=== PATIENT | male | born 1975 | race Caucasian/White ===

== ENCOUNTER 2018-05-15 09:36 | Emergency (ER) | payer MEDICAID ==
--- NOTE | 2018-05-15 10:17 | EDPHY ---
H & P Stated Complaint: L thigh pain Time Seen by Provider: 05/15/18 10:02 HPI/ROS: CHIEF COMPLAINT: Left inguinal pain HISTORY OF PRESENT ILLNESS: 42-year-old homeless male arrives via ambulance complaining of left inguinal pain. He does not think he sustained any trauma but does note that he may have fallen off a skateboard some time. He states that he is unable to bear weight but EMS and nursing staff reports that he was observed weight-bearing. He denies discoloration. Denies testicular or complaints. Denies abdominal pain. Denies nausea or vomiting. Passing gas and bowel movements as normal. PRIMARY CARE PROVIDER: REVIEW OF SYSTEMS: A ten point review of systems was performed and is negative with the exception of the items mentioned in the HPI PAST MEDICAL/SURGICAL HISTORY: no anticoagulant use, no relevant medical/ surgical history SOCIAL HISTORY: Homeless. Positive for daily tobacco use. PHYSICAL EXAM 1) GENERAL: Well-developed, well-nourished, alert and oriented. Sleeping, easily woken, requesting food Appears to be in no acute distress. Answering questions appropriately. 2) HEAD: Normocephalic, atraumatic 3) HEENT: Pupils equal, round, reactive to light bilaterally.. 4) NECK: No cervical collar is on. Posterior cervical spine is nontender, no stepoff, no effusion. Full range of motion which does not elicit any midline cervical spine pain, no posterior midline tenderness, no step-off. 5) LUNGS: Clear to auscultation bilaterally, no wheezes 6) HEART: [Regular rate and rhythm, 7) ABDOMEN: Flat, no visible abnormality. No inguinal mass, bilateral inguinal examination reveals no mass no hernia. He is tender to palpation left inguinal region with brisk and equal femoral pulses no bruit. No guarding, no rebound, no focal tenderness, no peritoneal signs, no signs of trauma, no ecchymosis 8) MUSCULOSKELETAL: Bilateral lower extremities have full range of motion. No pain with axial loading of the joint. Skin is intact with no signs of infection such as cellulitis. No crepitus. No erythema. No signs of trauma. Moving all extremities, no focal areas of tenderness, no obvious trauma. 9) BACK: No midline vertebral tenderness, no fluctuance, no step-off, no obvious trauma, no visual or palpable abnormality. 10) SKIN: No laceration. No abrasion 11) : Normal male external genitalia bilateral testicles nontender, scrotum is unremarkable with no signs of cellulitis or infection or Jhonatan's gangrene. No tenderness. DIFFERENTIAL DIAGNOSIS: In no particular order including but limited to fracture, sprain, strain, adenopathy, vascular pathology, thrombus, necrotizing fasciitis, necrotizing myositis , malignancy - Medical/Surgical History Hx Asthma: No Hx Chronic Respiratory Disease: No Hx Diabetes: No Hx Cardiac Disease: No Hx Renal Disease: No Hx Cirrhosis: No Hx Alcoholism: No Hx HIV/AIDS: No Hx Splenectomy or Spleen Trauma: No Other PMH: Anxiety, PTSD, ADHD - Social History Smoking Status: Never smoked Constitutional: Initial Vital Signs Temperature (C) 37.4 C 05/15/18 09:44 Heart Rate 87 05/15/18 09:44 Respiratory Rate 18 05/15/18 09:44 Blood Pressure 113/77 05/15/18 09:44 O2 Sat (%) 97 05/15/18 09:44 O2 Delivery Mode Room Air Allergies/Adverse Reactions: No Known Allergies Allergy (Unverified 05/15/18 09:46) Medical Decision Making - Diagnostics Imaging Results: Imaging Impressions Pelvis X-Ray 05/15/18 10:13 Impression:1. Cannot exclude a distal ureteral stone. 2. Possible sacroiliitis. Pelvis CT 05/15/18 10:50 Impression: 1. Shotty lymph nodes in the left inguinal area. 2. Remote sacroiliitis. 3. No distal ureteral lithiasis. Results called and discussed with Monica Lopez at 05/15/2018 11:31 Images reviewed myself ED Course/Re-evaluation: 10:17 a.m.: Patient refuses to ambulate for me however it was noted by the nursing staff and by EMS that he was able to ambulate without assistance. 10:50 a.m.: Re-evaluation, sleeping easily woken. Requesting food. X-ray shows no definitive fracture. He is complaining of continued pain in in the left inguinal region with no definitive mass or overlying skin changes. 11:30 a.m.: Re-evaluation, sleeping, easily woken, requesting food. Discussed his imaging results showing inguinal adenopathy. He has no evidence of scrotal or lower extremity infectious etiology. No other adenopathy appreciated on examination. No further intervention indicated from the emergency department. Malignancy not ruled out. Stressed follow up. Usual and customary discharge precautions and instructions provided. He feels comfortable being discharged. At discharge I observed the patient walking out of the emergency department wearing a backpack with a stable steady gait. He has no complaints of pain or discomfort. - Data Points Laboratory Results: 05/15/18 05/15/18 10:47 10:40 POC Hgb 15.0 gm/dL gm/dL (13.7-17.5) POC Hct 44 % % (40-51) POC Sodium 142 mEq/L mEq/L (135-145) POC Potassium 3.5 mEq/L mEq/L (3.3-5.0) POC Chloride 103 mEq/L mEq/L (97-110) POC BUN 6 mg/dL L mg/dL (7-23) POC Creatinine 0.7 mg/dL mg/dL (0.7-1.3) POC Glucose 84 mg/dL mg/dL (70-100) POC Troponin I 0.00 ng/mL ng/mL (0.00-0.08) Point of Care Test Results: Chemistry 05/15/18 05/15/18 10:47 10:40 POC Sodium 142 mEq/L mEq/L (135-145) POC Potassium 3.5 mEq/L mEq/L (3.3-5.0) POC Chloride 103 mEq/L mEq/L (97-110) POC BUN 6 mg/dL L mg/dL (7-23) POC Creatinine 0.7 mg/dL mg/dL (0.7-1.3) POC Glucose 84 mg/dL mg/dL (70-100) POC Troponin I 0.00 ng/mL ng/mL (0.00-0.08) ISTAT H&H 05/15/18 10:47 POC Hgb 15.0 gm/dL gm/dL (13.7-17.5) POC Hct 44 % % (40-51) Departure - Departure Disposition: Home, Routine, Self-Care Clinical Impression: Lymphadenopathy Condition: Good Instructions: Lymphadenopathy (ED) Additional Instructions: Return to the ER if you develop new or worsening symptoms or any other pain that concerns you. Referrals: [facility],. [Clinic] - 2-3 days, call for appt.
[2018-05-15] MEDS ORDERED: IOPAMIDOL (ISOVUE-300) 100 ML BTL ONE (10:52)
[2018-05-15 12:06] VITALS: BP 129/80
--- NOTE | 2018-05-15 15:27 | ASDISCHSUM ---
Discharge Information Plan Status:Homeless/Long Term Medically Cleared to Leave: Discharge Date:05/15/2018 12:06 PM D/C Disposition:Streets (Homeless) ADT D/C Disposition:Home, Routine, Self-Care Projected Discharge Date:05/15/2018 12:06 PM Transportation at D/C:None or Unknown Discharge Delay Reason: Follow-Up Date:05/15/2018 12:06 PM Discharge Slot: Final Diagnosis: Placement Information Patient Contact Information Contact Name:RAINERApolinar Relationship: Address: Home Phone: Work Phone: City: Alternate Phone: State/Zip Code: Email: Financial Information Financial Class:Medicaid Primary Plan Desc:[employer] Primary Plan Number:[id number] Secondary Plan Desc: Secondary Plan Number: Assessment Information [facility] Progress Note CM Note CM Note Notes: Pt presented to the ED via EMS for left inguinal pain and per EMS pt had reported he could not ambulate due to the pain. Pt was evaluated and all acute and emergent causes were ruled out. Per ED RN, pt had been observed ambulating in his pt room. Spoke w/pt and he states he recently returned to [facility] after living in [place] [facility]. This CM provided information on [facility]'s Coordinated Entry process and location, hours of operation, etc. Pt states he is not interested and plans to sleep outside. Pt also provided information on [facility] and their drop-in hours. Pt also provided various lists of local community resources as well as a [facility] pamphlet. Pt continued to state he was not interested in any of this information or resources. CM left the resource information w/pt's discharge paperwork. Pt ambulated out of the ED. CM available for further assistance if needed. Date Signed: 05/15/2018 03:26 PM Electronically Signed By:Fouzia Dunlap RN Intervention Information Intervention Type:Community Resources Date of Service:05/15/2018 03:26 PM Patient Type:Emergency Room Staff Member:CRISTHIAN Dunlap [place] Hours:0.25 Discipline:General Intern Severity: Comment: Intervention Type:Health Clinic Date of Service:05/15/2018 03:26 PM Patient Type:Emergency Room Staff Member:CRISTHIAN Dunlap [place] Hours:0.25 Discipline:General Intern Severity: Comment:
== END 2018-05-15 12:06 | disposition home or self-care (01) ==
DX: R59.1 Generalized enlarged lymph nodes (principal)
CPT/HCPCS: 82435-PO; 82565-PO; 82947-PO; 84132-PO; 84295-PO; 84484-PO; 84520-PO; 85014-PO; Q9967